=== PATIENT | male | born 1990 | race Caucasian/White ===

== ENCOUNTER 2023-01-10 06:45 | Emergency (ER) | payer SELFPAY ==
[~2023-01-10 06:45] MED LIST: HYDR-3583 PO
--- NOTE | 2023-01-10 07:16 | ED Headache ---
General Chief Complaint: Head/Cervical Problems Stated Complaint: RIGHT SIDE HEAD PAIN Nursing Triage Note: PT AMB TO [facility] WITH CC OF GUZMÁN APPROX 0500 THIS AM. PT REPORTS GUZMÁN ON AND OFF X1MON. PT STATES BELIEVES GUZMÁN IS RELATED TO DECAYED TOOTH. PT STATES TOOK IBUPROFEN AROUND 0530 Source: patient Exam Limitations: no limitations History of Present Illness Date Seen by Provider: Jan 10, 2023 Time Seen by Provider: 07:15 Initial Comments Patient is a 32yo male who presents to the ER with cc: headache that seems to radiate from upper teeth into samaritan. Occurs mostly at night and in the mornings. He has had dental pain for about a month without evaluation. He has been taking naproxen with relief but ran out. . No fevers or chills. no n/v/d. He is concerned he might have an aneurysm or stroke and has been "googling" and wanted to come get "reassurance" No family history of early stroke/SAH/aneurysm. No fevers. no facial swelling. painful chewing. Timing/Duration: 1-3 hours Severity/Quality: moderate Location: temporal Associated Symptoms: facial pain Allergies and Home Medications Allergies Coded Allergies: No Known Drug Allergies (Unverified , 10/16/10) Patient Home Medication List Home Medication List Reviewed: Yes Hydrocodone Bit/Acetaminophen (Lortab 5 Mg) 1 Tab Tab, 1-2 EA PO Q4HR PRN, (Reported) Entered as Reported by: BRYNN BOWMAN on 11/08/10 1614 Naproxen (Naprosyn) 500 Mg Tablet, 500 MG PO BID Prescribed by: ERIBERTO JAY on 01/10/23 0731 Review of Systems Review of Systems Constitutional: see HPI Eyes: No Symptoms Reported Ears, Nose, Mouth, Throat: mouth pain (dental pain) Respiratory: no symptoms reported Cardiovascular: no symptoms reported Gastrointestinal: no symptoms reported Genitourinary: no symptoms reported Musculoskeletal: no symptoms reported Skin: no symptoms reported Psychiatric/Neurological: Headache, Other All Other Systems Reviewed Negative Unless Noted: Yes Past Igszktg-Nrqndj-[id number] Hx Patient Social History Tobacco Use?: Yes Tobacco type used: Cigarettes Smoking Status: Current Everyday Smoker Substance use?: Yes Substance type: Marijuana Substance frequency: Several times a month Alcohol Use?: No Pt feels they are or have been: No Past Medical History Reproductive Disorders: No Physical Exam Vital Signs Vital Signs - First Documented 7/13/23 06:56 Temp 35.6 Pulse 68 Resp 18 B/P (MAP) 147/86 (106) Pulse Ox 100 O2 Delivery Room Air Capillary Refill : Less Than 3 Seconds Height, Weight, BMI Height: '" Weight: lbs. oz. kg; BMI Method: General Appearance: WD/WN, no apparent distress HEENT: PERRL/EOMI, TMs normal, pharynx normal, other (fractured tooth right upper posterior molar without signs of abscess) Neck: supple Cardiovascular: regular rate, rhythm Respiratory: lungs clear, normal breath sounds, no respiratory distress, no accessory muscle use Gastrointestinal: soft Extremities: normal range of motion, normal inspection Psychiatric: alert, oriented x 3 Crainal Nerves: normal hearing, normal speech, PERRL Coordination/Gait: normal gait Motor/Sensory: no motor deficit, no sensory deficit Skin: normal color, warm/dry Progress/Results/Core Measures Results/Orders Vital Signs/I&O 01/10/23 01/10/23 06:56 07:35 Temp 35.6 35.6 Pulse 68 68 Resp 18 18 B/P (MAP) 147/86 (106) 147/86 Pulse Ox 100 100 O2 Delivery Room Air Room Air Blood Pressure Mean: 106 Progress Progress Note : Time: 07:30 Progress Note Patient seen and evaluated by me, 32-year-old with headache, dental pain. Evaluation today includes physical exam. Pertinent physical exam findings well- developed well-nourished male with no focal neurologic deficits. Obvious right upper posterior molar fracture withpout signs of infection. Patient's vital signs are stable, he is afebrile. No overlying swelling, no facial edema or erythema. No evidence of drainable abscess. Heart is regular, lungs are clear. Headache is mild in nature at this time again with no focal neurologic deficits. Diagnosis based on history and physical, tension headache His physical and neuro exams are normal. Vital signs are stable. Offerred patient refill of naproxen and encouraged him to follow up with a PCP as he has no local doctor. He does have borderline high blood pressure and I encouraged him to monitor that. Return precautions provided in both verbal and written format. All questions are sought and answered. Departure Impression Primary Impression: Headache Qualified Codes: R51.9 - Headache, unspecified Disposition: HOME, SELF-CARE Condition: Improved Departure-Patient Inst. Decision time for Depature: 07:29 Referrals: [facility] [place]YSIC[place] (PCP) Primary Care Physician Patient Instructions: Headache, Adult ED, LOCAL PHYSICIAN LIST Add. Discharge Instructions: If you take the Naproxen, take it with food, no more than twice a day as needed for pain. If you headache changes in quality/severity or you have associated nausea, vision change, weakness, please return to the Emergency Department for re- evaluation. Follow up with a primary care doctor because your blood pressure is a bit high - this may need to be treated at some point. Scripts Naproxen (Naprosyn) 500 Mg Tablet 500 MG PO BID, #30 TAB 0 Refills take with food Prov: ERIBERTO JAY MD 01/10/23 ERIBERTO JAY MD Jan 10, 2023 07:16
[2023-01-10] MEDS ORDERED: NAPR-1071 PO (07:31)
[2023-01-10 07:35] VITALS: BP 147/86
== END 2023-01-10 07:35 | disposition home or self-care (01) ==
LOC: EDUNIT# 06:45 → ER 06:50
DX: R51.9 Headache, unspecified (principal); K08.89 Other specified disorders of teeth and supporting structures; F17.210 Nicotine dependence, cigarettes, uncomplicated
CPT/HCPCS: 99281